=== PATIENT | female | born 1945 | race Caucasian/White ===

== ENCOUNTER 2023-04-19 22:48 | Emergency (ER) | payer OTHER ==
[~2023-04-19] VITALS: Ht 162.6 cm; Wt 81.6 kg
[2023-04-19 22:50] VITALS: BP_SYST 133; PULSE 60; RESP 20; TEMP 98.3; O2SAT 98
[2023-04-19 23:40] VITALS: BP_SYST 103; PULSE 55; RESP 19; TEMP 97.8; O2SAT 95
== END 2023-04-19 23:40 | disposition home or self-care (01) ==
LOC: SED 22:48
DX: R00.1 Bradycardia, unspecified (principal); T44.7X5A Adverse effect of beta-adrenoreceptor antagonists, initial encounter; I10 Essential (primary) hypertension; Z79.899 Other long term (current) drug therapy; Y92.89 Other specified places as the place of occurrence of the external cause
CPT/HCPCS: 99281